=== PATIENT | female | born 1970 | race Caucasian/White ===

== ENCOUNTER → 2016-09-27 | Outpatient (CLI) | payer OTHER ==
[~2016-09-27] MED LIST: FIBER0.52 GM PO; LINSEED OIL1 ML MC; ONCE DAILY1 TA1 PO
== END ==
LOC: LAB 08:29
PROVIDERS: Physician Assistant
DX: N20.0 Calculus of kidney (principal)

== ENCOUNTER → 2016-10-09 | Outpatient (CLI) | payer OTHER ==
[2016-10-09 16:53] LABS: HEMOGLOBIN 14.3 g/dL (12.2-16.2); LYMPH # 2.9 K/mm3 (0.7-4.5); LYMPH % 36.9 % (10-50.0)
[2016-10-09 18:54] LABS: BUN 16 mg/dL (7-18)
[2016-10-09 18:55] LABS: GFR (ESTIMATED) 68 ML/MIN (59-)
== END ==
LOC: LAB 16:15
PROVIDERS: Physician Assistant
DX: N28.9 Disorder of kidney and ureter, unspecified (principal); N20.0 Calculus of kidney

== ENCOUNTER → 2017-03-05 | Outpatient (CLI) | payer OTHER ==
[2017-03-05 08:37] LABS: HEMOGLOBIN 14.1 g/dL (12.2-16.2); LYMPH # 2.8 K/mm3 (0.7-4.5); LYMPH % 29.4 % (10-50.0)
[2017-03-05 10:24] LABS: BUN 13 mg/dL (7-18); FREE THYROXIN INDEX 6.5 ug/dl (5.93-13.13)
[2017-03-05 10:25] LABS: GFR (ESTIMATED) 68 ML/MIN (59-)
== END ==
LOC: LAB 08:02
PROVIDERS: Nurse Practitioner Obstetrics & Gynecology
DX: E03.9 Hypothyroidism, unspecified (principal); E78.00 Pure hypercholesterolemia, unspecified